=== PATIENT | female | born 1950 ===

== ENCOUNTER 2021-09-20 08:15 | Inpatient (IN) | payer OTHER ==
[~2021-09-20] VITALS: Ht 157.5 cm; Wt 94.3 kg
[2021-09-20] MEDS ORDERED: ACID REDUCER20 M1 PO (10:16)
[2021-09-26] MEDS ORDERED: OXYC1TAB9 PO (07:47)
[2021-09-26] MEDS ORDERED: XARELTO10 MG PO (07:47)
[2021-09-26] MEDS ORDERED: INTEGRA PLUS C1 EACH PO (07:47)
== END 2021-09-26 15:37 | DRG 470 ==
LOC: SURH 09-24 08:15 → O/R 09-24 10:59 → SURH 09-24 10:59
PROVIDERS: ADMIT Orthopaedic Surgery Sports Medicine; ATTEND Orthopaedic Surgery Sports Medicine
PROC: 0SRD0J9 Replacement of Left Knee Joint with Synthetic Substitute, Cemented, Open Approach (ICD-10-PCS; principal; 2021-09-24 18:15)
DX: M17.12 Unilateral primary osteoarthritis, left knee (principal); Z20.822 Contact with and (suspected) exposure to COVID-19